=== PATIENT | female | born 1960 ===

== ENCOUNTER 2021-07-03 05:27 | Emergency (ER) | payer SELFPAY ==
[~2021-07-03] VITALS: Ht 162.6 cm; Wt 75.0 kg
[2021-07-03 05:28] VITALS: BP 173/92
== END 2021-07-03 06:04 | disposition left against medical advice (07) ==
LOC: ED 05:58
DX: Z53.21 Procedure and treatment not carried out due to patient leaving prior to being seen by health care provider (principal)